=== PATIENT | male | born 1995 | race Caucasian/White ===

== ENCOUNTER 2020-12-26 23:41 | Emergency (ER) | payer BC, OTHER, SELFPAY ==
[2020-12-27] MEDS ORDERED: Ketorolac Tromethamine 30 MG/ML VIAL ONE (00:56)
[2020-12-27] MEDS ORDERED: Famotidine/PF 20 mg/2ml Vial ONE (00:57)
[2020-12-27] MEDS ORDERED: Promethazine HCl 25 MG/ML VIAL ONE ×2 (00:57→05:29)
[2020-12-27] MEDS ORDERED: Ventolin HFA Inhaler 60 PUFF INHALER ONE (01:14)
[2020-12-27 01:38] LABS: #Monocytes 0.1 10x3/uL (0.0-1.1); #Neutrophils 2.4 10x3/uL (1.5-8.4); %Basophils 0.3 % (0.0-2.0); %Lymphocytes 24.6 % (18.0-47.0); %Monocytes 3.6 % (0.0-10.0); %Neutrophils 71.2 % (40.0-75.0); Hemoglobin 14.8 g/dL (13.5-17.5); Mean Corpuscular HGB CONC 36.4 g/dL (32.0-36.0); Mean Corpuscular Hemoglobin 29.4 pg (27.0-33.0); Mean Corpuscular Volume 80.8 fl (81.2-95.1); Mean Platelet Volume 9.8 fl (7.4-10.4); Platelet Count 110 10x3/uL (150-450); RBC Distribution Width 11.9 % (11.5-14.5); Red Blood Cell (RBC) Count 5.04 10x6/uL (4.32-5.72); White Blood Cell (WBC) Count 3.4 10x3/uL (3.5-10.5)
[2020-12-27 01:40] LABS: ALT (SGPT) 69 U/L (8-55); AST (SGOT) 92 U/L (5-34); Albumin 3.9 g/dL (3.5-5.0); Alkaline Phosphatase 70 U/L (40-110); Anion Gap 15 mmol/L (10-20); BUN (Urea Nitrogen) 8 mg/dL (8.9-20.6); Calc. Creatinine Clearance 0 mL/min (70-130); Calcium 8.6 mg/dL (7.8-10.44); Carbon Dioxide 21 mmol/L (22-29); Chloride 107 mmol/L (98-107); Globulin 2.7 g/dL (2.4-3.5); Glucose 100 mg/dL (70-105); Lipase 38 U/L (8-78); Potassium 3.7 mmol/L (3.5-5.1); Protein, Total 6.6 g/dL (6.0-8.3); Sodium 139 mmol/L (136-145)
[2020-12-27] MEDS ORDERED: Lorazepam 2 MG/ML VIAL ONE (03:05)
== END 2020-12-27 06:07 | disposition home or self-care (01) ==
LOC: CSHERS 23:41
DX: U07.1 COVID-19 (principal); J12.82 Pneumonia due to coronavirus disease 2019
CPT/HCPCS: 71045; 71275; 80053; 83605; 83690; 83880; 84484; 85025; 85379; 93005; 94664; 94760; 96374; 96375; 96376; J1885; J2060; J2550; S0028